=== PATIENT | male | born 1955 | race Caucasian/White ===

== ENCOUNTER 2020-07-28 10:34 | Inpatient (IN) ==
[2020-07-29] MEDS ORDERED: GLUCAGON 1 MG VIAL IM PRN (09:19)
[2020-07-29] MEDS ORDERED: DEXTROSE 50% 25 GM/50 ML VIAL IV PRN (09:19)
[2020-07-29] MEDS ORDERED: NITROGLYCERIN DRIP 50 MG/250 ML BOTTLE IV PRN (09:25)
[2020-07-29] MEDS ORDERED: HEPARIN DRIP 25,000 UNITS/500 ML PREMIX IV SCH (09:30)
[2020-07-29] MEDS ORDERED: SODIUM CHLORIDE 0.9% 1,000 ML IV SCH (12:00)
[2020-07-29] MEDS: AMIODARONE INJ 450 MG in DEXTROSE 5% 241 ML IV SCH (14:30)
[2020-07-29] MEDS ORDERED: AMIODARONE INJ 50 MG in DEXTROSE 5% 100 ML IV ONE (14:40)
[2020-07-29] MEDS ORDERED: CLORAZEPATE 3.75 MG TABLET PO PRN (14:47)
[2020-07-29] MEDS ORDERED: MORPHINE 4 MG/1 ML VIAL IV PRN (14:50)
[2020-07-29] MEDS ORDERED: NITROGLYCERIN SL 0.4 MG TABLET SL PRN (14:50)
[2020-07-29 15:39] LABS: ABG Base Excess -0.6 MMOL/L (-2.5-2.5); ABG HCO3 22.8 MMOL/L (20-26); ABG Oxygen Saturation 98.6 % (95-100); ABG PCO2 34.4 MM HG (35-48); ABG PO2 124.4 MM HG (80-95); ABG TCO2 23.9 MMOL/L (23-27); Allen Test Positive
[2020-07-29 15:41] LABS: Basophils % 0.2 % (0.0-0.8); Hematocrit 46.7 VOL% (42.0-52.0); Hemoglobin 15.6 GM/DL (14.0-18.0); Immature Granulocytes % 0.6 %; Immature Granulocytes Absolute 0.08 #; Lymphocytes # 1.2 10*3/uL (1.4-4.0); Lymphocytes % 8.2 % (21.2-54.2); Mean Corpuscular HGB Conc 33.4 GM/DL (32-36); Mean Corpuscular Volume 86.3 FL (87-102); Mean Platelet Volume 11.1 FL (9.6-12.0); Platelet Count 222 T/CUMM (130-400); Red Blood Count 5.41 MC/CUMM (3.8-5.5); White Blood Count 14.2 T/CUMM (4-12)
[2020-07-29 15:51] LABS: INR 1.1; PT Patient Result 11.8 SECS (9.8-11.9)
[2020-07-29 15:53] LABS: Partial Thromboplastin Time 50.3 SECS (23.9-33.8)
[2020-07-29 16:07] LABS: Albumin 3.5 G/DL (3.4-5.0); Bilirubin,Total 1.4 MG/DL (0.2-1.0); Osmolality,Calculated 258.2 MOS/KG (273-304); Potassium 4.1 MMOL/L (3.5-5.1); Total Protein 7.6 G/DL (6.4-8.2)
[2020-07-29 16:09] LABS: CKMB % 6.5 %
[2020-07-29 16:21] LABS: Troponin I 18.6 NG/ML (0.00-0.045)
[2020-07-29] MEDS: CHLORHEXIDINE 4% SOLN 118 ML BOTTLE TOP SCH ×2 (18:00→21:05)
[2020-07-29] MEDS: CHLORHEXIDINE 0.12% ORAL RINSE 60 ML BOTTLE SWISH/SPIT SCH (21:05)
[2020-07-29 21:27] LABS: INR 1.2; PT Patient Result 12.4 SECS (9.8-11.9); Partial Thromboplastin Time 39.5 SECS (23.9-33.8)
[2020-07-30] MEDS ORDERED: VANCOMYCIN 1,000 MG VIAL ONE (04:20)
[2020-07-30] MEDS ORDERED: VANCOMYCIN 500 MG VIAL ONE (04:20)
[2020-07-30] MEDS ORDERED: PAPAVERINE 60 MG/2 ML VIAL ONE (04:20)
[2020-07-30] MEDS ORDERED: CEFUROXIME INJ 1,500 MG in SODIUM CHLORIDE 0.9% 100 ML IV ONE (05:00)
[2020-07-30 05:06] LABS: Basophils % 0.3 % (0.0-0.8); Eosinophils % 0.2 % (0.00-10.9); Hematocrit 45.3 VOL% (42.0-52.0); Hemoglobin 15.2 GM/DL (14.0-18.0); Immature Granulocytes % 0.6 %; Immature Granulocytes Absolute 0.06 #; Lymphocytes # 1.1 10*3/uL (1.4-4.0); Lymphocytes % 10.5 % (21.2-54.2); Mean Corpuscular HGB Conc 33.6 GM/DL (32-36); Mean Corpuscular Volume 86.9 FL (87-102); Mean Platelet Volume 10.4 FL (9.6-12.0); Monocytes % 11.5 % (1.7-12.7); Neutrophils % 76.9 % (38.7-73.9); Platelet Count 214 T/CUMM (130-400); Red Blood Count 5.21 MC/CUMM (3.8-5.5); Red Cell Distribution Width 13.8 % (9.3-17.3); White Blood Count 10.7 T/CUMM (4-12)
[2020-07-30] MEDS: CHLORHEXIDINE 4% SOLN 118 ML BOTTLE TOP SCH ×2 (05:20→12:05)
[2020-07-30 05:36] LABS: Albumin 3.1 G/DL (3.4-5.0); Bilirubin,Total 1.4 MG/DL (0.2-1.0); Calcium 8.1 MG/DL (8.5-10.1); Osmolality,Calculated 263.7 MOS/KG (273-304); Potassium 3.8 MMOL/L (3.5-5.1); Total Protein 7.1 G/DL (6.4-8.2)
[2020-07-30 05:42] LABS: INR 4.9; PT Patient Result 48.1 SECS (9.8-11.9)
[2020-07-30] MEDS ORDERED: DIAZEPAM 5 MG TABLET PO ONE (05:42)
[2020-07-30] MEDS ORDERED: FAMOTIDINE 20 MG TABLET PO ONE (05:43)
[2020-07-30] MEDS: AMIODARONE INJ 450 MG in DEXTROSE 5% 241 ML IV SCH ×3 (05:44→23:40)
[2020-07-30 05:50] LABS: Partial Thromboplastin Time 20.5 SECS (23.9-33.8)
[2020-07-30] MEDS ORDERED: AMINOCAPROIC ACID 5,000 MG/20 ML VIAL ONE ×4 (05:53)
[2020-07-30] MEDS ORDERED: MIDAZOLAM 10 MG/2 ML VIAL ONE ×2 (05:59→08:41)
[2020-07-30] MEDS ORDERED: SUFentanil 250 MCG/5 ML AMP ONE (06:00)
[2020-07-30] MEDS ORDERED: LACTATED RINGERS 1,000 ML IV ONE (06:12)
[2020-07-30] MEDS ORDERED: ETOMIDATE 40 MG/20 ML VIAL IV ONE (06:12)
[2020-07-30] MEDS ORDERED: SODIUM CHLORIDE 0.9% 1,000 ML IV ONE (06:12)
[2020-07-30] MEDS ORDERED: LIDOCAINE 2% 5 ML VIAL ONE ×2 (06:12→10:29)
[2020-07-30] MEDS ORDERED: SODIUM CHLORIDE 0.9% 250 ML IV ONE (06:12)
[2020-07-30] MEDS ORDERED: CALCIUM CHLORIDE 1,000 MG/10 ML VIAL IV ONE (06:12)
[2020-07-30] MEDS ORDERED: VECURONIUM 10 MG VIAL IV ONE (06:12)
[2020-07-30] MEDS ORDERED: PHENYLEPHRINE DRIP 20 MG/250 ML PREMIX IV ONE (06:12)
[2020-07-30] MEDS ORDERED: PHENYLEPHRINE 1 MG/10 ML SYRINGE IV ONE (06:12)
[2020-07-30] MEDS ORDERED: HEPARIN/NACL 0.9% 2 UNITS/ML 500 ML IV ONE (06:13)
[2020-07-30 07:43] LABS: ABG Base Excess -1.7 MMOL/L (-2.5-2.5); ABG HCO3 23.1 MMOL/L (20-26); ABG PCO2 32.6 MM HG (35-48); ABG PH 7.432 (7.35-7.45); ABG TCO2 18.8 MMOL/L (23-27); Glucose Heart Surgery 117 MG/DL (74-106); Hematocrit Heart Surgery 41.4 PERCENT (42-52); Hemoglobin Heart Surgery 13.5 G/DL (14.0-18.0); Ionized Calcium Arterial 1.09 MMOL/L (1.21-1.46); PCO2 Patient Temp Arterial 32.6 MMHG; PH Patient Temp Arterial 7.432; Patient Temperature 37 CELCIUS; Potassium Heart/CVR 3.7 MMOL/L (3.5-5.1); Sodium Heart/CVR 133 MMOL/L (135-145)
[2020-07-30 07:49] LABS: Bilirubin,Urine Negative (Negative); Blood, Urine Small mg/dL (Negative); Glucose,Urine (UA) Negative (Negative); Ketones,Urine 5 mg/dL (Negative); Mucus,Urine Occasional /LPF (Occasional); Nitrite,Urine Negative (Negative); Protein,Urine Negative; RBC,Urine 3 /HPF (0-4); Urine Appearance CLEAR (Clear); Urine Color Yellow (Yellow); Urine Specific Gravity 1.016 (1.001-1.035); WBC,Urine <1 /HPF (0-6)
[2020-07-30 09:11] LABS: Hematocrit Heart Surgery 28.6 PERCENT (42-52); Hemoglobin Heart Surgery 9.2 G/DL (14.0-18.0); PCO2 Patient Temp Venous 37.8 MM HG; PH Patient Temp Venous 7.416; Potassium Heart/CVR 4.5 MMOL/L (3.5-5.1); VBG HCO3 24.1 MEQ/L (24-28); VBG Oxygen Saturation 75.2 %; VBG PCO2 39.7 MMHG (41-51); VBG PH 7.402; VBG PO2 40.7 MMHG (17-40); VBG Total CO2 22.8 MMOL/L
[2020-07-30 09:43] LABS: Hematocrit Heart Surgery 31.8 PERCENT (42-52); Hemoglobin Heart Surgery 10.3 G/DL (14.0-18.0); PH Patient Temp Venous 7.438; PO2 Patient Temp Venous 38.2 MM HG; Potassium Heart/CVR 4.2 MMOL/L (3.5-5.1); VBG Base Excess -0.2 MEQ/L (0-4); VBG Oxygen Saturation 79.3 %; VBG PCO2 38.5 MMHG (41-51); VBG PH 7.408; VBG PO2 43.9 MMHG (17-40); VBG Total CO2 22.1 MMOL/L
[2020-07-30] MEDS ORDERED: NITROPRUSSIDE 50 MG/2 ML VIAL ONE (10:12)
[2020-07-30] MEDS ORDERED: SODIUM BICARBONATE 50 MEQ/50 ML VIAL IV ONE ×2 (10:12→10:30)
[2020-07-30] MEDS ORDERED: CALCIUM CHLORIDE 1,000 MG/10 ML SYRINGE IV ONE (10:13)
[2020-07-30] MEDS ORDERED: POTASSIUM CHLORIDE RIDER 100 ML IV ONE (10:13)
[2020-07-30] MEDS ORDERED: PHENYLEPHRINE DRIP 40 MG/250 ML PREMIX IV ONE (10:13)
[2020-07-30] MEDS ORDERED: ALBUMIN 5% 12.5 GM/250 ML VIAL IV ONE (10:14)
[2020-07-30 10:15] LABS: Hematocrit Heart Surgery 31.7 PERCENT (42-52); Hemoglobin Heart Surgery 10.3 G/DL (14.0-18.0); PCO2 Patient Temp Venous 38.5 MM HG; PH Patient Temp Venous 7.402; PO2 Patient Temp Venous 38.7 MM HG; Potassium Heart/CVR 4.4 MMOL/L (3.5-5.1); VBG Base Excess -0.5 MEQ/L (0-4); VBG HCO3 23.5 MEQ/L (24-28); VBG Oxygen Saturation 72.2 %; VBG PCO2 38.5 MMHG (41-51); VBG PH 7.402; VBG PO2 38.7 MMHG (17-40); VBG Total CO2 21.9 MMOL/L
[2020-07-30] MEDS ORDERED: DEXTROSE 5% KCL 20 MEQ 20 MEQ/1,000 ML BAG IV ONE (10:29)
[2020-07-30] MEDS ORDERED: PROTAMINE SULFATE 250 MG/25 ML VIAL IV ONE (10:29)
[2020-07-30] MEDS ORDERED: methylPREDNISolone SOD SUC 1,000 MG/8 ML VIAL ONE (10:29)
[2020-07-30] MEDS ORDERED: ALBUMIN 25% 25 GM/100 ML VIAL IV ONE (10:29)
[2020-07-30] MEDS ORDERED: MANNITOL 100 GM/500 ML BAG IV ONE (10:29)
[2020-07-30] MEDS ORDERED: MAGNESIUM SULFATE 5 GM/10 ML VIAL IV ONE (10:29)
[2020-07-30] MEDS ORDERED: FUROSEMIDE 20 MG/2 ML VIAL ONE (10:30)
[2020-07-30] MEDS ORDERED: HEPARIN 10,000 UNIT/10 ML VIAL ONE (10:30)
[2020-07-30] MEDS ORDERED: PROTAMINE SULFATE 50 MG/5 ML VIAL IV ONE (10:30)
[2020-07-30 10:44] LABS: ABG Base Excess -1.6 MMOL/L (-2.5-2.5); ABG HCO3 23.1 MMOL/L (20-26); ABG PCO2 35.2 MM HG (35-48); ABG PH 7.412 (7.35-7.45); Glucose Heart Surgery 241 MG/DL (74-106); Hematocrit Heart Surgery 35.6 PERCENT (42-52); Hemoglobin Heart Surgery 11.6 G/DL (14.0-18.0); Ionized Calcium Arterial 1.21 MMOL/L (1.21-1.46); PCO2 Patient Temp Arterial 35.2 MMHG; PH Patient Temp Arterial 7.412; Patient Temperature 37 CELCIUS; Sodium Heart/CVR 128 MMOL/L (135-145)
[2020-07-30] MEDS ORDERED: SEVOFLURANE 1 UNIT/15 MINUTE INH ONE (10:55)
[2020-07-30] MEDS ORDERED: INSULIN REGULAR 100 UNIT/ML IV PRN (11:28)
[2020-07-30] MEDS ORDERED: CHLORHEXIDINE 4% SOLN 118 ML BOTTLE TOP PRN (11:28)
[2020-07-30] MEDS ORDERED: MORPHINE 10 MG/1 ML VIAL IV PRN (11:28)
[2020-07-30] MEDS ORDERED: INSULIN REGULAR 100 UNIT/ML IV ONE (11:28)
[2020-07-30] MEDS ORDERED: MIDAZOLAM 2 MG/2 ML VIAL IV PRN (11:28)
[2020-07-30] MEDS ORDERED: LACTATED RINGERS 250 ML IV PRN (11:28)
[2020-07-30] MEDS ORDERED: VECURONIUM 10 MG VIAL IV PRN ×2 (11:28)
[2020-07-30] MEDS ORDERED: DEXTROSE 50% 25 GM/50 ML VIAL IV PRN ×2 (11:28)
[2020-07-30] MEDS ORDERED: CALCIUM CHLORIDE 1,000 MG/10 ML SYRINGE IV PRN (11:28)
[2020-07-30] MEDS ORDERED: PHENYLEPHRINE DRIP 40 MG/250 ML PREMIX IV PRN (11:28)
[2020-07-30] MEDS ORDERED: NITROPRUSSIDE 100 MG in DEXTROSE 5% 250 ML IV PRN (11:28)
[2020-07-30] MEDS ORDERED: MAGNESIUM SULF RIDER 4 GM in PREMIX 1 EACH IV PRN (11:28)
[2020-07-30] MEDS ORDERED: MIDAZOLAM 10 MG/2 ML VIAL IV PRN (11:28)
[2020-07-30] MEDS ORDERED: ACETAMINOPHEN 650 MG SUPP RECTAL PRN (11:28)
[2020-07-30] MEDS ORDERED: MAGNESIUM SULF RIDER 2 GM in PREMIX 1 EACH IV PRN (11:28)
[2020-07-30] MEDS ORDERED: SODIUM CHLORIDE 0.45% 1,000 ML IV SCH ×2 (11:30)
[2020-07-30] MEDS ORDERED: INSULIN REGULAR DRIP 100 ML IV SCH (11:30)
[2020-07-30 11:47] LABS: ABG HCO3 23.6 MMOL/L (20-26); ABG PCO2 35.7 MM HG (35-48); ABG PH 7.417 (7.35-7.45); ABG TCO2 20.2 MMOL/L (23-27); Glucose Heart Surgery 205 MG/DL (74-106); Hematocrit Heart Surgery 37.8 PERCENT (42-52); Hemoglobin Heart Surgery 12.3 G/DL (14.0-18.0); Potassium Heart/CVR 3.7 MMOL/L (3.5-5.1)
[2020-07-30 11:52] LABS: Basophils % 0.2 % (0.0-0.8); Eosinophils % 0.1 % (0.00-10.9); Hematocrit 36.4 VOL% (42.0-52.0); Immature Granulocytes % 1.4 %; Immature Granulocytes Absolute 0.14 #; Lymphocytes # 0.3 10*3/uL (1.4-4.0); Lymphocytes % 3.2 % (21.2-54.2); Mean Corpuscular HGB Conc 33.2 GM/DL (32-36); Mean Corpuscular Volume 87.3 FL (87-102); Neutrophils % 91.1 % (38.7-73.9); Platelet Count 189 T/CUMM (130-400); Red Blood Count 4.17 MC/CUMM (3.8-5.5)
[2020-07-30 11:53] LABS: Hemoglobin 12.1 GM/DL (14.0-18.0)
[2020-07-30 12:02] LABS: INR 1.3; PT Patient Result 13.5 SECS (9.8-11.9); Partial Thromboplastin Time 30.6 SECS (23.9-33.8)
[2020-07-30] MEDS ORDERED: LACTATED RINGERS 1,000 ML IV PRN (12:16)
[2020-07-30 12:21] LABS: Troponin I 36.1 NG/ML (0.00-0.045)
[2020-07-30 12:29] LABS: Albumin 2.8 G/DL (3.4-5.0); Anisocytosis 1+; Band Neutrophils 20 % (0-10); Bilirubin,Total 1.9 MG/DL (0.2-1.0); Calcium 7.8 MG/DL (8.5-10.1); Lymphocytes 5 % (20-55); Metamyelocytes 1 %; Osmolality,Calculated 270.5 MOS/KG (273-304); Platelet Estimate Normal; Potassium 3.8 MMOL/L (3.5-5.1); Segmented Neutrophils 70 % (50-85); Total Cells Counted 100; Total Protein 5.6 G/DL (6.4-8.2)
[2020-07-30] MEDS: POTASSIUM CHLORIDE RIDER 20 MEQ in PREMIX 1 EACH IV PRN ×2 (12:47→21:13)
[2020-07-30] MEDS: ALBUMIN 5% 12.5 GM in PREMIX 1 EACH IV PRN ×2 (12:48→15:26)
[2020-07-30 13:48] LABS: ABG Base Excess -0.2 MMOL/L (-2.5-2.5); ABG HCO3 24.3 MMOL/L (20-26); ABG Oxygen Saturation 99.8 % (95-100); ABG PCO2 36.1 MM HG (35-48); ABG PH 7.427 (7.35-7.45); ABG TCO2 21.1 MMOL/L (23-27); Glucose Heart Surgery 157 MG/DL (74-106); Hematocrit Heart Surgery 35.7 PERCENT (42-52); Hemoglobin Heart Surgery 11.6 G/DL (14.0-18.0); Potassium Heart/CVR 4.3 MMOL/L (3.5-5.1)
[2020-07-30] MEDS: POTASSIUM CHLORIDE RIDER 10 MEQ in PREMIX 1 EACH IV PRN (14:19)
[2020-07-30] MEDS: CHLORHEXIDINE 0.12% ORAL RINSE 60 ML BOTTLE SWISH/SPIT SCH ×2 (14:21→21:15)
[2020-07-30 15:46] LABS: ABG Base Excess -2.5 MMOL/L (-2.5-2.5); ABG HCO3 22.4 MMOL/L (20-26); ABG Oxygen Saturation 99.2 % (95-100); ABG PCO2 36.3 MM HG (35-48); ABG PH 7.391 (7.35-7.45); ABG TCO2 19.6 MMOL/L (23-27); Glucose Heart Surgery 162 MG/DL (74-106); Hematocrit Heart Surgery 36.1 PERCENT (42-52); Hemoglobin Heart Surgery 11.7 G/DL (14.0-18.0); Potassium Heart/CVR 3.8 MMOL/L (3.5-5.1)
[2020-07-30 17:49] LABS: ABG Base Excess -0.8 MMOL/L (-2.5-2.5); ABG HCO3 23.8 MMOL/L (20-26); ABG Oxygen Saturation 99.4 % (95-100); ABG PCO2 33.4 MM HG (35-48); ABG PH 7.441 (7.35-7.45); ABG TCO2 20.2 MMOL/L (23-27); Glucose Heart Surgery 158 MG/DL (74-106); Hematocrit Heart Surgery 35.4 PERCENT (42-52); Hemoglobin Heart Surgery 11.5 G/DL (14.0-18.0)
[2020-07-30] MEDS ORDERED: FUROSEMIDE 40 MG/4 ML VIAL IV PRN (18:22)
[2020-07-30 20:35] LABS: ABG Base Excess -1.7 MMOL/L (-2.5-2.5); ABG Oxygen Saturation 98.1 % (95-100); ABG PCO2 39.6 MM HG (35-48); ABG PH 7.376 (7.35-7.45); ABG TCO2 20.7 MMOL/L (23-27); Glucose Heart Surgery 152 MG/DL (74-106); Hemoglobin Heart Surgery 11.7 G/DL (14.0-18.0); Potassium Heart/CVR 4.2 MMOL/L (3.5-5.1)
[2020-07-30] MEDS: CEFUROXIME INJ 1,500 MG in SYRINGE 1 EACH IV SCH (21:14)
[2020-07-30 21:22] LABS: CKMB % 3.8 %
[2020-07-30] MEDS: MORPHINE 4 MG/1 ML VIAL IV PRN ×2 (21:49→23:56)
[2020-07-31] MEDS: POTASSIUM CHLORIDE RIDER 10 MEQ in PREMIX 1 EACH IV PRN ×2 (01:12→06:57)
[2020-07-31] MEDS: ONDANSETRON 4 MG/2 ML VIAL IV PRN (04:41)
[2020-07-31] MEDS: AMIODARONE INJ 450 MG in DEXTROSE 5% 241 ML IV SCH (04:41)
[2020-07-31] MEDS: MORPHINE 4 MG/1 ML VIAL IV PRN (04:42)
[2020-07-31 04:57] LABS: ABG Base Excess -3.4 MMOL/L (-2.5-2.5); ABG HCO3 21.6 MMOL/L (20-26); ABG Oxygen Saturation 94.6 % (95-100); ABG PCO2 45.7 MM HG (35-48); ABG PH 7.312 (7.35-7.45); ABG PO2 77.9 MM HG (80-95); ABG TCO2 20.6 MMOL/L (23-27); Glucose Heart Surgery 121 MG/DL (74-106); Hematocrit Heart Surgery 37.8 PERCENT (42-52); Hemoglobin Heart Surgery 12.3 G/DL (14.0-18.0); Potassium Heart/CVR 4.8 MMOL/L (3.5-5.1)
[2020-07-31 05:01] LABS: Basophils % 0.1 % (0.0-0.8); Hematocrit 37.3 VOL% (42.0-52.0); Hemoglobin 12.1 GM/DL (14.0-18.0); Immature Granulocytes % 0.6 %; Immature Granulocytes Absolute 0.13 #; Lymphocytes % 4.8 % (21.2-54.2); Mean Corpuscular HGB Conc 32.4 GM/DL (32-36); Mean Corpuscular Volume 89.9 FL (87-102); Mean Platelet Volume 10.8 FL (9.6-12.0); Monocytes % 9.5 % (1.7-12.7); Platelet Count 231 T/CUMM (130-400); Red Blood Count 4.15 MC/CUMM (3.8-5.5); Red Cell Distribution Width 14.2 % (9.3-17.3); White Blood Count 21.2 T/CUMM (4-12)
[2020-07-31 05:15] LABS: CKMB % 3.1 %
[2020-07-31 05:37] LABS: Albumin 3.6 G/DL (3.4-5.0); Bilirubin,Direct 0.38 MG/DL (0.0-0.20); Bilirubin,Total 0.9 MG/DL (0.2-1.0); Calcium 8.3 MG/DL (8.5-10.1); Osmolality,Calculated 271.2 MOS/KG (273-304); Potassium 4.9 MMOL/L (3.5-5.1); Total Protein 6.1 G/DL (6.4-8.2)
[2020-07-31 06:25] LABS: Lymphocytes 11 % (20-55); Macrocytosis Slight; Segmented Neutrophils 87 % (50-85); Total Cells Counted 100
[2020-07-31 06:26] LABS: Platelet Estimate Adequate; Polychromasia Few
[2020-07-31] MEDS: CEFUROXIME INJ 1,500 MG in SYRINGE 1 EACH IV SCH ×2 (08:00→18:45)
[2020-07-31] MEDS: KETOROLAC 30 MG/1 ML VIAL IV PRN ×2 (08:52→15:54)
[2020-07-31] MEDS ORDERED: GLUCAGON 1 MG VIAL IM PRN (08:59)
[2020-07-31] MEDS ORDERED: DEXTROSE 50% 25 GM/50 ML VIAL IV PRN (08:59)
[2020-07-31] MEDS: AMIODARONE 200 MG TABLET PO SCH ×2 (10:00→20:38)
[2020-07-31] MEDS: CHLORHEXIDINE 0.12% ORAL RINSE 60 ML BOTTLE SWISH/SPIT SCH ×2 (10:00→20:41)
[2020-07-31] MEDS ORDERED: POTASSIUM CHLORIDE 20 MEQ TABLET PO PRN (10:35)
[2020-07-31] MEDS ORDERED: MAGNESIUM HYDROXIDE SUSP 30 ML UDCUP PO PRN (10:35)
[2020-07-31] MEDS ORDERED: ACETAMINOPHEN 325 MG TABLET PO PRN (10:35)
[2020-07-31] MEDS ORDERED: SODIUM CHLOR 0.45% KCL 20 MEQ 20 MEQ/1,000 ML BAG IV SCH (11:00)
[2020-07-31] MEDS: FERROUS SULFATE 325 MG TABLET PO SCH (11:06)
[2020-07-31] MEDS: DOCUSATE SODIUM 100 MG CAPSULE PO SCH (12:00)
[2020-07-31] MEDS: PANTOPRAZOLE 40 MG TABLET PO SCH (12:00)
[2020-07-31] MEDS: oxyCODONE/ACETAMINOPHEN 5-325 MG TABLET PO PRN ×2 (12:00→20:41)
[2020-07-31] MEDS: ASPIRIN EC 325 MG TABLET PO SCH (12:00)
[2020-07-31] MEDS: ALBUMIN 5% 12.5 GM in PREMIX 1 EACH IV PRN ×2 (13:15→13:35)
[2020-07-31 14:34] LABS: CKMB % 2.4 %
[2020-07-31 14:35] LABS: Troponin I 11.6 NG/ML (0.00-0.045)
[2020-07-31] MEDS ORDERED: FUROSEMIDE 40 MG/4 ML VIAL IV ONE (18:29)
[2020-08-01] MEDS: INSULIN REGULAR 100 UNIT/ML SUBCUT SCH ×4 (00:51→18:32)
[2020-08-01] MEDS: ZALEPLON 5 MG CAPSULE PO PRN ×3 (02:25→23:36)
[2020-08-01] MEDS: oxyCODONE/ACETAMINOPHEN 5-325 MG TABLET PO PRN ×2 (02:26→08:05)
[2020-08-01 05:09] LABS: Basophils % 0.1 % (0.0-0.8); Hemoglobin 9.9 GM/DL (14.0-18.0); Immature Granulocytes % 0.6 %; Immature Granulocytes Absolute 0.07 #; Lymphocytes % 8.9 % (21.2-54.2); Mean Corpuscular HGB Conc 31.9 GM/DL (32-36); Mean Corpuscular Volume 90.1 FL (87-102); Monocytes % 8.2 % (1.7-12.7); Neutrophils % 82.2 % (38.7-73.9); Platelet Count 170 T/CUMM (130-400); Red Blood Count 3.44 MC/CUMM (3.8-5.5); Red Cell Distribution Width 14.1 % (9.3-17.3); White Blood Count 11.2 T/CUMM (4-12)
[2020-08-01 05:29] LABS: Albumin 3.1 G/DL (3.4-5.0); Bilirubin,Direct 0.32 MG/DL (0.0-0.20); Bilirubin,Total 1.2 MG/DL (0.2-1.0); Calcium 8.2 MG/DL (8.5-10.1); Osmolality,Calculated 269.5 MOS/KG (273-304); Potassium 4.5 MMOL/L (3.5-5.1); Total Protein 5.3 G/DL (6.4-8.2)
[2020-08-01 05:31] LABS: Alanine Aminotransferase 83 U/L (16-61); Alkaline Phosphatase 62 U/L (45-117); Aspartate Amino Transferase 62 U/L (0-37); Bilirubin,Indirect 1.1 MG/DL (0.0-1.0); Total Protein 5.8 G/DL (6.4-8.2)
[2020-08-01] MEDS ORDERED: FUROSEMIDE 40 MG/4 ML VIAL IV ONE (06:00)
[2020-08-01] MEDS: KETOROLAC 30 MG/1 ML VIAL IV PRN ×2 (08:30→20:55)
[2020-08-01] MEDS: FERROUS SULFATE 325 MG TABLET PO SCH (09:00)
[2020-08-01] MEDS: AMIODARONE 200 MG TABLET PO SCH ×2 (09:00→20:54)
[2020-08-01] MEDS: ASPIRIN EC 325 MG TABLET PO SCH (09:01)
[2020-08-01] MEDS: PANTOPRAZOLE 40 MG TABLET PO SCH (09:01)
[2020-08-01] MEDS: DOCUSATE SODIUM 100 MG CAPSULE PO SCH (09:01)
[2020-08-01] MEDS: CHLORHEXIDINE 0.12% ORAL RINSE 60 ML BOTTLE SWISH/SPIT SCH ×2 (09:03→21:20)
[2020-08-01] MEDS: PHENOL 1.4% THROAT SPRAY 177 ML BOTTLE PO PRN ×2 (11:18→23:37)
[2020-08-01] MEDS: ALUMINUM/MAGNES/SIMETH MAX STR 30 ML UDCUP PO PRN (14:28)
[2020-08-01] MEDS: CITALOPRAM 20 MG TABLET PO SCH (20:54)
[2020-08-01] MEDS: ATORVASTATIN 40 MG TABLET PO SCH (20:54)
[2020-08-02] MEDS: INSULIN REGULAR 100 UNIT/ML SUBCUT SCH ×3 (01:08→11:55)
[2020-08-02] MEDS: ONDANSETRON 4 MG/2 ML VIAL IV PRN ×4 (03:30→20:55)
[2020-08-02] MEDS: ALUMINUM/MAGNES/SIMETH MAX STR 30 ML UDCUP PO PRN ×2 (04:20→12:12)
[2020-08-02 05:22] LABS: Basophils % 0.1 % (0.0-0.8); Eosinophils % 0.1 % (0.00-10.9); Hemoglobin 12.7 GM/DL (14.0-18.0); Immature Granulocytes % 0.8 %; Immature Granulocytes Absolute 0.09 #; Lymphocytes # 0.8 10*3/uL (1.4-4.0); Lymphocytes % 7.1 % (21.2-54.2); Mean Corpuscular HGB Conc 33.4 GM/DL (32-36); Mean Corpuscular Volume 87.4 FL (87-102); Monocytes % 9.7 % (1.7-12.7); Neutrophils % 82.2 % (38.7-73.9); Platelet Count 240 T/CUMM (130-400); Red Blood Count 4.35 MC/CUMM (3.8-5.5); Red Cell Distribution Width 13.9 % (9.3-17.3); White Blood Count 11.4 T/CUMM (4-12)
[2020-08-02 05:42] LABS: Alanine Aminotransferase 87 U/L (16-61); Albumin 3.2 G/DL (3.4-5.0); Alkaline Phosphatase 101 U/L (45-117); Aspartate Amino Transferase 53 U/L (0-37); Bilirubin,Direct 0.51 MG/DL (0.0-0.20); Bilirubin,Indirect 0.6 MG/DL (0.0-1.0); Bilirubin,Total 2.4 MG/DL (0.2-1.0); Calcium 8.5 MG/DL (8.5-10.1); Osmolality,Calculated 273.2 MOS/KG (273-304); Potassium 4.4 MMOL/L (3.5-5.1); Total Protein 6.6 G/DL (6.4-8.2)
[2020-08-02] MEDS: AMIODARONE 200 MG TABLET PO SCH ×2 (09:57→20:53)
[2020-08-02] MEDS: PANTOPRAZOLE 40 MG TABLET PO SCH (09:57)
[2020-08-02] MEDS: DOCUSATE SODIUM 100 MG CAPSULE PO SCH (09:57)
[2020-08-02] MEDS: ASPIRIN EC 325 MG TABLET PO SCH (09:57)
[2020-08-02] MEDS: CHLORHEXIDINE 0.12% ORAL RINSE 60 ML BOTTLE SWISH/SPIT SCH ×2 (09:58→21:23)
[2020-08-02] MEDS: FERROUS SULFATE 325 MG TABLET PO SCH (09:58)
[2020-08-02] MEDS: METOCLOPRAMIDE 10 MG/2 ML VIAL IV SCH ×4 (12:01→23:02)
[2020-08-02] MEDS: KETOROLAC 30 MG/1 ML VIAL IV PRN ×2 (13:08→21:24)
[2020-08-02] MEDS ORDERED: MAGNESIUM SULF RIDER 4 GM in PREMIX 1 EACH IV PRN (15:20)
[2020-08-02] MEDS ORDERED: DEXTROSE 50% 25 GM/50 ML VIAL IV PRN (15:20)
[2020-08-02] MEDS ORDERED: ALUMINUM/MAGNES/SIMETH MAX STR 30 ML UDCUP PO PRN (15:20)
[2020-08-02] MEDS ORDERED: MAGNESIUM HYDROXIDE SUSP 30 ML UDCUP PO PRN (15:20)
[2020-08-02] MEDS ORDERED: SODIUM CHLOR 0.45% KCL 20 MEQ 20 MEQ/1,000 ML BAG IV SCH (15:20)
[2020-08-02] MEDS ORDERED: POTASSIUM CHLORIDE 20 MEQ TABLET PO PRN (15:20)
[2020-08-02] MEDS ORDERED: ZALEPLON 5 MG CAPSULE PO PRN (15:20)
[2020-08-02] MEDS ORDERED: GLUCAGON 1 MG VIAL IM PRN (15:20)
[2020-08-02] MEDS ORDERED: METOPROLOL TARTRATE 25 MG TABLET PO ONE (15:20)
[2020-08-02] MEDS ORDERED: MAGNESIUM SULF RIDER 2 GM in PREMIX 1 EACH IV PRN (15:20)
[2020-08-02] MEDS ORDERED: ACETAMINOPHEN 325 MG TABLET PO PRN (15:20)
[2020-08-02] MEDS ORDERED: FUROSEMIDE 40 MG/4 ML VIAL IV ONE (16:58)
[2020-08-02] MEDS: METOPROLOL TARTRATE 25 MG TABLET PO SCH (20:53)
[2020-08-02] MEDS: CITALOPRAM 20 MG TABLET PO SCH (20:53)
[2020-08-02] MEDS: ATORVASTATIN 40 MG TABLET PO SCH (20:53)
[2020-08-02] MEDS ORDERED: AMIODARONE INJ 100 MG in DEXTROSE 5% 100 ML IV ONE (22:10)
[2020-08-02] MEDS ORDERED: PROMETHAZINE INJ 12.5 MG in SODIUM CHLORIDE 0.9% 50 ML IV PRN (22:10)
[2020-08-02] MEDS ORDERED: FUROSEMIDE 40 MG/4 ML VIAL IV PRN (22:20)
[2020-08-02] MEDS: AMIODARONE INJ 450 MG in DEXTROSE 5% 241 ML IV SCH (22:54)
[2020-08-03] MEDS: KETOROLAC 30 MG/1 ML VIAL IV PRN (03:22)
[2020-08-03 04:06] LABS: Basophils % 0.1 % (0.0-0.8); Hematocrit 39.9 VOL% (42.0-52.0); Hemoglobin 13.6 GM/DL (14.0-18.0); Immature Granulocytes % 0.4 %; Immature Granulocytes Absolute 0.03 #; Lymphocytes # 0.3 10*3/uL (1.4-4.0); Lymphocytes % 3.7 % (21.2-54.2); Mean Corpuscular HGB Conc 34.1 GM/DL (32-36); Mean Corpuscular Volume 86.2 FL (87-102); Mean Platelet Volume 10.7 FL (9.6-12.0); Monocytes % 10.3 % (1.7-12.7); Neutrophils % 85.5 % (38.7-73.9); Platelet Count 270 T/CUMM (130-400); Red Blood Count 4.63 MC/CUMM (3.8-5.5); Red Cell Distribution Width 13.8 % (9.3-17.3); White Blood Count 8.4 T/CUMM (4-12)
[2020-08-03 04:28] LABS: Alanine Aminotransferase 335 U/L (16-61); Albumin 2.9 G/DL (3.4-5.0); Alkaline Phosphatase 237 U/L (45-117); Aspartate Amino Transferase 252 U/L (0-37); Bilirubin,Indirect 0.7 MG/DL (0.0-1.0); Blood Urea Nitrogen 43 MG/DL (7-18); Calcium 8.4 MG/DL (8.5-10.1); Carbon Dioxide 27 MMOL/L (21-32); Estimated Glom Filtration Rate 54 ML/MIN; Glucose 124 MG/DL (74-106); Osmolality,Calculated 275.5 MOS/KG (273-304); Potassium 4.3 MMOL/L (3.5-5.1); Sodium 132 MMOL/L (136-145); Total Protein 6.5 G/DL (6.4-8.2)
[2020-08-03] MEDS ORDERED: ACETAMINOPHEN 650 MG SUPP RECTAL PRN (05:02)
[2020-08-03] MEDS ORDERED: ALBUMIN 5% 12.5 GM in PREMIX 1 EACH IV ONE ×2 (05:08→06:02)
[2020-08-03 05:14] LABS: Hypochromasia Slight; Lymphocytes 7 % (20-55); Platelet Estimate Normal; Segmented Neutrophils 87 % (50-85); Total Cells Counted 100
[2020-08-03] MEDS: PIPERACILLIN/TAZOBACTAM 3,375 MG in SODIUM CHLORIDE 0.9% 100 ML IV SCH ×3 (05:40→21:30)
[2020-08-03] MEDS ORDERED: FUROSEMIDE 40 MG/4 ML VIAL IV ONE (06:00)
[2020-08-03] MEDS: METOCLOPRAMIDE 10 MG/2 ML VIAL IV SCH (06:10)
[2020-08-03] MEDS ORDERED: PHENYLEPHRINE DRIP 40 MG/250 ML PREMIX IV ONE (06:36)
[2020-08-03] MEDS: SODIUM CHLORIDE 0.9% 1,000 ML IV SCH ×5 (06:37→21:55)
[2020-08-03] MEDS ORDERED: PHENYLEPHRINE DRIP 40 MG/250 ML PREMIX IV PRN (06:41)
[2020-08-03 07:43] LABS: ABG Base Excess 3.9 MMOL/L (-2.5-2.5); ABG HCO3 27.9 MMOL/L (20-26); ABG Oxygen Saturation 97.2 % (95-100); ABG PCO2 34.1 MM HG (35-48); ABG PH 7.503 (7.35-7.45); ABG PO2 87.1 MM HG (80-95); ABG TCO2 23.7 MMOL/L (23-27)
[2020-08-03] MEDS: METOPROLOL TARTRATE 25 MG TABLET PO SCH ×2 (09:47→21:30)
[2020-08-03] MEDS: DOCUSATE SODIUM 100 MG/10 ML UDCUP PO SCH (10:19)
[2020-08-03] MEDS: PANTOPRAZOLE 40 MG VIAL IV SCH (10:19)
[2020-08-03] MEDS: ASPIRIN EC 325 MG TABLET PO SCH (10:19)
[2020-08-03] MEDS: DOCUSATE SODIUM 100 MG CAPSULE PO SCH (10:43)
[2020-08-03] MEDS: PANTOPRAZOLE 40 MG TABLET PO SCH (10:43)
[2020-08-03] MEDS: CHLORHEXIDINE 0.12% ORAL RINSE 60 ML BOTTLE SWISH/SPIT SCH ×2 (13:03→21:29)
[2020-08-03] MEDS: POLYETHYLENE GLYCOL POWDER 17 GM PACK PO SCH (13:07)
[2020-08-03] MEDS: AMIODARONE INJ 450 MG in DEXTROSE 5% 241 ML IV SCH (15:11)
[2020-08-03] MEDS: CITALOPRAM 20 MG TABLET PO SCH (21:29)
[2020-08-04 04:27] LABS: Basophils % 0.1 % (0.0-0.8); Eosinophils # 0.1 10*3/uL (0.0-0.87); Eosinophils % 0.6 % (0.00-10.9); Hematocrit 30.5 VOL% (42.0-52.0); Immature Granulocytes % 0.6 %; Immature Granulocytes Absolute 0.05 #; Lymphocytes % 12.1 % (21.2-54.2); Mean Corpuscular HGB Conc 32.8 GM/DL (32-36); Mean Corpuscular Volume 88.7 FL (87-102); Mean Platelet Volume 10.2 FL (9.6-12.0); Monocytes % 10.9 % (1.7-12.7); Neutrophils % 75.7 % (38.7-73.9); Platelet Count 242 T/CUMM (130-400); Red Blood Count 3.44 MC/CUMM (3.8-5.5); Red Cell Distribution Width 13.8 % (9.3-17.3)
[2020-08-04 04:55] LABS: Albumin 2.6 G/DL (3.4-5.0); Bilirubin,Direct 0.61 MG/DL (0.0-0.20); Bilirubin,Indirect 1.3 MG/DL (0.0-1.0); Bilirubin,Total 1.9 MG/DL (0.2-1.0)
[2020-08-04 04:58] LABS: Alanine Aminotransferase 161 U/L (16-61); Albumin 2.5 G/DL (3.4-5.0); Alkaline Phosphatase 126 U/L (45-117); Aspartate Amino Transferase 59 U/L (0-37); Bilirubin,Indirect 1.5 MG/DL (0.0-1.0); Blood Urea Nitrogen 33 MG/DL (7-18); Calcium 7.8 MG/DL (8.5-10.1); Carbon Dioxide 25 MMOL/L (21-32); Estimated Glom Filtration Rate 101 ML/MIN; Glucose 68 MG/DL (74-106); Osmolality,Calculated 281.5 MOS/KG (273-304); Sodium 139 MMOL/L (136-145); Total Protein 5.6 G/DL (6.4-8.2)
[2020-08-04] MEDS: PIPERACILLIN/TAZOBACTAM 3,375 MG in SODIUM CHLORIDE 0.9% 100 ML IV SCH ×3 (06:15→21:09)
[2020-08-04] MEDS: SODIUM CHLORIDE 0.9% 1,000 ML IV SCH ×4 (06:27→23:47)
[2020-08-04] MEDS: AMIODARONE INJ 450 MG in DEXTROSE 5% 241 ML IV SCH ×2 (07:06→08:35)
[2020-08-04] MEDS: ASPIRIN EC 325 MG TABLET PO SCH (09:00)
[2020-08-04] MEDS: PANTOPRAZOLE 40 MG VIAL IV SCH (09:00)
[2020-08-04] MEDS: DOCUSATE SODIUM 100 MG/10 ML UDCUP PO SCH (10:25)
[2020-08-04] MEDS: METOPROLOL TARTRATE 25 MG TABLET PO SCH ×2 (10:25→20:01)
[2020-08-04] MEDS: POLYETHYLENE GLYCOL POWDER 17 GM PACK PO SCH (10:26)
[2020-08-04] MEDS: CHLORHEXIDINE 0.12% ORAL RINSE 60 ML BOTTLE SWISH/SPIT SCH ×2 (10:26→20:02)
[2020-08-04] MEDS ORDERED: VANCOMYCIN INJ 1,000 MG in SODIUM CHLORIDE 0.9% 250 ML IV ONE (14:47)
[2020-08-04] MEDS: CITALOPRAM 20 MG TABLET PO SCH (20:02)
[2020-08-05] MEDS: AMIODARONE INJ 450 MG in DEXTROSE 5% 241 ML IV SCH (02:49)
[2020-08-05 04:57] LABS: Basophils % 0.1 % (0.0-0.8); Eosinophils # 0.1 10*3/uL (0.0-0.87); Hematocrit 31.2 VOL% (42.0-52.0); Immature Granulocytes % 1.4 %; Immature Granulocytes Absolute 0.11 #; Lymphocytes # 0.9 10*3/uL (1.4-4.0); Lymphocytes % 11.9 % (21.2-54.2); Mean Corpuscular HGB Conc 32.1 GM/DL (32-36); Mean Corpuscular Volume 89.1 FL (87-102); Mean Platelet Volume 10.5 FL (9.6-12.0); Monocytes % 10.3 % (1.7-12.7); Neutrophils % 75.3 % (38.7-73.9); Platelet Count 230 T/CUMM (130-400); Red Cell Distribution Width 13.5 % (9.3-17.3); White Blood Count 7.8 T/CUMM (4-12)
[2020-08-05] MEDS: PIPERACILLIN/TAZOBACTAM 3,375 MG in SODIUM CHLORIDE 0.9% 100 ML IV SCH ×3 (05:22→20:32)
[2020-08-05 05:29] LABS: Albumin 2.4 G/DL (3.4-5.0); Bilirubin,Total 0.7 MG/DL (0.2-1.0); Osmolality,Calculated 275.7 MOS/KG (273-304); Potassium 3.9 MMOL/L (3.5-5.1); Total Protein 5.4 G/DL (6.4-8.2)
[2020-08-05 05:33] LABS: Bilirubin,Indirect 1.4 MG/DL (0.0-1.0)
[2020-08-05] MEDS ORDERED: KETOROLAC 30 MG/1 ML VIAL IV ONE (09:55)
[2020-08-05] MEDS: PANTOPRAZOLE 40 MG TABLET PO SCH (10:00)
[2020-08-05] MEDS: DOCUSATE SODIUM 100 MG/10 ML UDCUP PO SCH (10:00)
[2020-08-05] MEDS: ASPIRIN EC 325 MG TABLET PO SCH (10:00)
[2020-08-05] MEDS: POLYETHYLENE GLYCOL POWDER 17 GM PACK PO SCH (10:00)
[2020-08-05] MEDS: METOPROLOL TARTRATE 25 MG TABLET PO SCH ×2 (10:00→20:19)
[2020-08-05] MEDS: SODIUM CHLORIDE 0.9% 1,000 ML IV SCH (10:25)
[2020-08-05] MEDS: PANTOPRAZOLE 40 MG VIAL IV SCH (10:45)
[2020-08-05] MEDS ORDERED: ACETAMINOPHEN 325 MG TABLET PO PRN (14:14)
[2020-08-05] MEDS ORDERED: GLUCAGON 1 MG VIAL IM PRN (14:14)
[2020-08-05] MEDS ORDERED: DEXTROSE 50% 25 GM/50 ML VIAL IV PRN (14:14)
[2020-08-05] MEDS ORDERED: MAGNESIUM SULF RIDER 4 GM in PREMIX 1 EACH IV PRN (14:14)
[2020-08-05] MEDS ORDERED: ONDANSETRON 4 MG/2 ML VIAL IV PRN (14:14)
[2020-08-05] MEDS ORDERED: KETOROLAC 30 MG/1 ML VIAL IV PRN (14:14)
[2020-08-05] MEDS ORDERED: MAGNESIUM SULF RIDER 2 GM in PREMIX 1 EACH IV PRN (14:14)
[2020-08-05] MEDS ORDERED: ZALEPLON 5 MG CAPSULE PO PRN (14:14)
[2020-08-05] MEDS: CITALOPRAM 20 MG TABLET PO SCH (20:19)
[2020-08-05] MEDS: CHLORHEXIDINE 0.12% ORAL RINSE 60 ML BOTTLE SWISH/SPIT SCH (20:20)
[2020-08-05] MEDS ORDERED: AMIODARONE 200 MG TABLET PO ONE (21:00)
[2020-08-06 05:18] LABS: Basophils % 0.3 % (0.0-0.8); Eosinophils # 0.1 10*3/uL (0.0-0.87); Eosinophils % 1.4 % (0.00-10.9); Hematocrit 32.2 VOL% (42.0-52.0); Hemoglobin 10.6 GM/DL (14.0-18.0); Immature Granulocytes % 3.8 %; Immature Granulocytes Absolute 0.27 #; Lymphocytes % 13.9 % (21.2-54.2); Mean Corpuscular HGB Conc 32.9 GM/DL (32-36); Mean Platelet Volume 10.3 FL (9.6-12.0); Monocytes % 8.3 % (1.7-12.7); Neutrophils % 72.3 % (38.7-73.9); Platelet Count 274 T/CUMM (130-400); Red Blood Count 3.66 MC/CUMM (3.8-5.5); Red Cell Distribution Width 13.2 % (9.3-17.3); White Blood Count 7.2 T/CUMM (4-12)
[2020-08-06 05:42] LABS: Hypochromasia Slight; Microcytosis 1+
[2020-08-06 05:43] LABS: Platelet Estimate Normal
[2020-08-06 05:45] LABS: Alanine Aminotransferase 91 U/L (16-61); Albumin 2.2 G/DL (3.4-5.0); Alkaline Phosphatase 113 U/L (45-117); Aspartate Amino Transferase 37 U/L (0-37); Blood Urea Nitrogen 19 MG/DL (7-18); Calcium 7.9 MG/DL (8.5-10.1); Carbon Dioxide 19 MMOL/L (21-32); Estimated Glom Filtration Rate 111 ML/MIN; Glucose 80 MG/DL (74-106); Osmolality,Calculated 270.1 MOS/KG (273-304); Potassium 3.8 MMOL/L (3.5-5.1); Sodium 135 MMOL/L (136-145); Total Protein 5.4 G/DL (6.4-8.2)
[2020-08-06] MEDS: PIPERACILLIN/TAZOBACTAM 3,375 MG in SODIUM CHLORIDE 0.9% 100 ML IV SCH ×3 (05:50→22:15)
[2020-08-06] MEDS: AMIODARONE INJ 450 MG in DEXTROSE 5% 241 ML IV SCH (07:36)
[2020-08-06] MEDS: CHLORHEXIDINE 0.12% ORAL RINSE 60 ML BOTTLE SWISH/SPIT SCH ×3 (07:37→20:23)
[2020-08-06] MEDS ORDERED: PANTOPRAZOLE 40 MG TABLET PO SCH (09:00)
[2020-08-06] MEDS: DOCUSATE SODIUM 100 MG/10 ML UDCUP PO SCH (09:13)
[2020-08-06] MEDS: POTASSIUM CHLORIDE 20 MEQ TABLET PO PRN (09:20)
[2020-08-06] MEDS: PANTOPRAZOLE 40 MG TABLET PO SCH (09:21)
[2020-08-06] MEDS: DOCUSATE SODIUM 100 MG CAPSULE PO SCH (09:21)
[2020-08-06] MEDS: ASPIRIN EC 325 MG TABLET PO SCH (09:21)
[2020-08-06] MEDS: AMIODARONE 200 MG TABLET PO SCH ×2 (09:21→20:19)
[2020-08-06] MEDS: METOPROLOL TARTRATE 25 MG TABLET PO SCH ×2 (09:21→20:19)
[2020-08-06] MEDS: CITALOPRAM 20 MG TABLET PO SCH (20:19)
[2020-08-07 05:09] LABS: Basophils % 0.2 % (0.0-0.8); Eosinophils # 0.1 10*3/uL (0.0-0.87); Eosinophils % 1.3 % (0.00-10.9); Hematocrit 30.9 VOL% (42.0-52.0); Hemoglobin 10.4 GM/DL (14.0-18.0); Immature Granulocytes % 4.5 %; Lymphocytes # 1.2 10*3/uL (1.4-4.0); Lymphocytes % 13.5 % (21.2-54.2); Mean Corpuscular HGB Conc 33.7 GM/DL (32-36); Mean Corpuscular Volume 86.1 FL (87-102); Monocytes % 9.5 % (1.7-12.7); Platelet Count 311 T/CUMM (130-400); Red Blood Count 3.59 MC/CUMM (3.8-5.5); Red Cell Distribution Width 13.6 % (9.3-17.3)
[2020-08-07] MEDS: PIPERACILLIN/TAZOBACTAM 3,375 MG in SODIUM CHLORIDE 0.9% 100 ML IV SCH ×3 (05:28→21:13)
[2020-08-07 05:32] LABS: Alanine Aminotransferase 73 U/L (16-61); Albumin 2.2 G/DL (3.4-5.0); Albumin 2.3 G/DL (3.4-5.0); Alkaline Phosphatase 91 U/L (45-117); Aspartate Amino Transferase 26 U/L (0-37); Bilirubin,Indirect 1.5 MG/DL (0.0-1.0); Bilirubin,Total 0.6 MG/DL (0.2-1.0); Calcium 7.5 MG/DL (8.5-10.1); Osmolality,Calculated 269.1 MOS/KG (273-304); Potassium 3.8 MMOL/L (3.5-5.1); Total Protein 4.7 G/DL (6.4-8.2); Total Protein 5.2 G/DL (6.4-8.2)
[2020-08-07 05:34] LABS: Troponin I 0.714 NG/ML (0.00-0.045)
[2020-08-07] MEDS: CHLORHEXIDINE 0.12% ORAL RINSE 60 ML BOTTLE SWISH/SPIT SCH ×2 (08:44→20:06)
[2020-08-07] MEDS: AMIODARONE 200 MG TABLET PO SCH ×2 (08:44→20:06)
[2020-08-07] MEDS: ASPIRIN EC 325 MG TABLET PO SCH (08:44)
[2020-08-07] MEDS: DOCUSATE SODIUM 100 MG CAPSULE PO SCH (08:44)
[2020-08-07] MEDS: PANTOPRAZOLE 40 MG TABLET PO SCH (08:44)
[2020-08-07] MEDS: METOPROLOL TARTRATE 25 MG TABLET PO SCH ×2 (08:44→20:06)
[2020-08-07] MEDS: CITALOPRAM 20 MG TABLET PO SCH (20:06)
[2020-08-07] MEDS: POTASSIUM CHLORIDE 20 MEQ TABLET PO PRN (21:09)
[2020-08-08] MEDS: POTASSIUM CHLORIDE 20 MEQ TABLET PO PRN (00:07)
[2020-08-08] MEDS: PIPERACILLIN/TAZOBACTAM 3,375 MG in SODIUM CHLORIDE 0.9% 100 ML IV SCH ×3 (05:33→22:31)
[2020-08-08 05:51] LABS: Basophils # 0.1 10*3/uL (0.0-0.2); Basophils % 0.4 % (0.0-0.8); Eosinophils # 0.1 10*3/uL (0.0-0.87); Eosinophils % 0.9 % (0.00-10.9); Hematocrit 32.1 VOL% (42.0-52.0); Hemoglobin 10.8 GM/DL (14.0-18.0); Immature Granulocytes % 3.6 %; Lymphocytes # 1.2 10*3/uL (1.4-4.0); Lymphocytes % 11.1 % (21.2-54.2); Mean Corpuscular HGB Conc 33.6 GM/DL (32-36); Mean Corpuscular Volume 85.8 FL (87-102); Mean Platelet Volume 9.9 FL (9.6-12.0); Monocytes % 8.3 % (1.7-12.7); Neutrophils % 75.7 % (38.7-73.9); Platelet Count 335 T/CUMM (130-400); Red Blood Count 3.74 MC/CUMM (3.8-5.5); Red Cell Distribution Width 13.5 % (9.3-17.3); White Blood Count 11.2 T/CUMM (4-12)
[2020-08-08 06:13] LABS: Hypochromasia 1+; Microcytosis 1+; Platelet Estimate Adequate
[2020-08-08 06:14] LABS: Albumin 2.3 G/DL (3.4-5.0); Bilirubin,Total 0.8 MG/DL (0.2-1.0); Calcium 7.8 MG/DL (8.5-10.1); Osmolality,Calculated 265.2 MOS/KG (273-304); Potassium 4.1 MMOL/L (3.5-5.1); Total Protein 5.5 G/DL (6.4-8.2)
[2020-08-08] MEDS: DOCUSATE SODIUM 100 MG CAPSULE PO SCH (09:01)
[2020-08-08] MEDS: ASPIRIN EC 325 MG TABLET PO SCH (09:01)
[2020-08-08] MEDS: AMIODARONE 200 MG TABLET PO SCH ×2 (09:01→20:28)
[2020-08-08] MEDS: METOPROLOL TARTRATE 25 MG TABLET PO SCH ×2 (09:01→20:28)
[2020-08-08] MEDS: PANTOPRAZOLE 40 MG TABLET PO SCH (09:01)
[2020-08-08] MEDS: CHLORHEXIDINE 0.12% ORAL RINSE 60 ML BOTTLE SWISH/SPIT SCH ×2 (09:02→20:28)
[2020-08-08] MEDS: CITALOPRAM 20 MG TABLET PO SCH (20:28)
[2020-08-09] MEDS: PIPERACILLIN/TAZOBACTAM 3,375 MG in SODIUM CHLORIDE 0.9% 100 ML IV SCH ×2 (05:36→16:05)
[2020-08-09 05:50] LABS: Basophils % 0.3 % (0.0-0.8); Eosinophils # 0.1 10*3/uL (0.0-0.87); Hematocrit 33.4 VOL% (42.0-52.0); Hemoglobin 11.4 GM/DL (14.0-18.0); Immature Granulocytes % 3.9 %; Immature Granulocytes Absolute 0.47 #; Lymphocytes # 1.3 10*3/uL (1.4-4.0); Lymphocytes % 11.1 % (21.2-54.2); Mean Corpuscular HGB Conc 34.1 GM/DL (32-36); Mean Corpuscular Volume 86.8 FL (87-102); Monocytes % 6.8 % (1.7-12.7); Neutrophils % 76.9 % (38.7-73.9); Platelet Count 363 T/CUMM (130-400); Red Blood Count 3.85 MC/CUMM (3.8-5.5); Red Cell Distribution Width 13.9 % (9.3-17.3); White Blood Count 11.9 T/CUMM (4-12)
[2020-08-09 06:13] LABS: Alanine Aminotransferase 61 U/L (16-61); Albumin 2.3 G/DL (3.4-5.0); Alkaline Phosphatase 85 U/L (45-117); Aspartate Amino Transferase 26 U/L (0-37); Bilirubin,Indirect 0.6 MG/DL (0.0-1.0); Blood Urea Nitrogen 8 MG/DL (7-18); Calcium 7.9 MG/DL (8.5-10.1); Carbon Dioxide 18 MMOL/L (21-32); Estimated Glom Filtration Rate 113 ML/MIN; Glucose 75 MG/DL (74-106); Osmolality,Calculated 260.5 MOS/KG (273-304); Potassium 3.8 MMOL/L (3.5-5.1); Sodium 132 MMOL/L (136-145); Total Protein 5.6 G/DL (6.4-8.2); Troponin I 0.248 NG/ML (0.00-0.045)
[2020-08-09] MEDS: PANTOPRAZOLE 40 MG TABLET PO SCH (09:08)
[2020-08-09] MEDS: CHLORHEXIDINE 0.12% ORAL RINSE 60 ML BOTTLE SWISH/SPIT SCH ×2 (09:08→22:02)
[2020-08-09] MEDS: DOCUSATE SODIUM 100 MG CAPSULE PO SCH (09:08)
[2020-08-09] MEDS: METOPROLOL TARTRATE 25 MG TABLET PO SCH ×2 (09:08→22:00)
[2020-08-09] MEDS: AMIODARONE 200 MG TABLET PO SCH ×2 (09:08→22:01)
[2020-08-09] MEDS: ASPIRIN EC 325 MG TABLET PO SCH (09:08)
[2020-08-09] MEDS: CITALOPRAM 20 MG TABLET PO SCH (22:01)
[2020-08-10] MEDS: PIPERACILLIN/TAZOBACTAM 3,375 MG in SODIUM CHLORIDE 0.9% 100 ML IV SCH ×4 (01:16→23:45)
[2020-08-10 04:17] LABS: Basophils # 0.1 10*3/uL (0.0-0.2); Basophils % 0.5 % (0.0-0.8); Eosinophils # 0.1 10*3/uL (0.0-0.87); Eosinophils % 1.2 % (0.00-10.9); Hematocrit 33.9 VOL% (42.0-52.0); Hemoglobin 11.5 GM/DL (14.0-18.0); Immature Granulocytes % 4.3 %; Immature Granulocytes Absolute 0.44 #; Lymphocytes # 1.3 10*3/uL (1.4-4.0); Lymphocytes % 12.9 % (21.2-54.2); Mean Corpuscular HGB Conc 33.9 GM/DL (32-36); Mean Corpuscular Volume 86.3 FL (87-102); Mean Platelet Volume 9.9 FL (9.6-12.0); Monocytes % 7.5 % (1.7-12.7); Neutrophils % 73.6 % (38.7-73.9); Platelet Count 383 T/CUMM (130-400); Red Blood Count 3.93 MC/CUMM (3.8-5.5); Red Cell Distribution Width 13.9 % (9.3-17.3); White Blood Count 10.3 T/CUMM (4-12)
[2020-08-10 04:35] LABS: Alanine Aminotransferase 61 U/L (16-61); Albumin 2.5 G/DL (3.4-5.0); Alkaline Phosphatase 83 U/L (45-117); Aspartate Amino Transferase 27 U/L (0-37); Bilirubin,Indirect 0.5 MG/DL (0.0-1.0); Blood Urea Nitrogen 9 MG/DL (7-18); Carbon Dioxide 20 MMOL/L (21-32); Estimated Glom Filtration Rate 113 ML/MIN; Glucose 71 MG/DL (74-106); Osmolality,Calculated 258.7 MOS/KG (273-304); Potassium 3.7 MMOL/L (3.5-5.1); Sodium 131 MMOL/L (136-145); Total Protein 5.8 G/DL (6.4-8.2)
[2020-08-10] MEDS: AMIODARONE 200 MG TABLET PO SCH ×2 (09:12→21:02)
[2020-08-10] MEDS: DOCUSATE SODIUM 100 MG CAPSULE PO SCH (09:12)
[2020-08-10] MEDS: METOPROLOL TARTRATE 25 MG TABLET PO SCH (09:12)
[2020-08-10] MEDS: PANTOPRAZOLE 40 MG TABLET PO SCH (09:12)
[2020-08-10] MEDS: ASPIRIN EC 325 MG TABLET PO SCH (09:12)
[2020-08-10] MEDS: CHLORHEXIDINE 0.12% ORAL RINSE 60 ML BOTTLE SWISH/SPIT SCH ×2 (09:13→21:02)
[2020-08-10] MEDS ORDERED: APIXABAN 5 MG TABLET PO ONE (10:30)
[2020-08-10] MEDS: APIXABAN 5 MG TABLET PO SCH (21:01)
[2020-08-10] MEDS: CITALOPRAM 20 MG TABLET PO SCH (21:01)
[2020-08-10] MEDS: METOPROLOL TARTRATE 50 MG TABLET PO SCH (21:02)
[2020-08-11 05:20] LABS: Calcium 8.4 MG/DL (8.5-10.1); Osmolality,Calculated 262.4 MOS/KG (273-304)
[2020-08-11] MEDS: METOPROLOL TARTRATE 50 MG TABLET PO SCH (08:18)
[2020-08-11] MEDS: DOCUSATE SODIUM 100 MG CAPSULE PO SCH (08:18)
[2020-08-11] MEDS: PANTOPRAZOLE 40 MG TABLET PO SCH (08:18)
[2020-08-11] MEDS: ASPIRIN EC 325 MG TABLET PO SCH (08:18)
[2020-08-11] MEDS: AMIODARONE 200 MG TABLET PO SCH (08:19)
[2020-08-11] MEDS: APIXABAN 5 MG TABLET PO SCH (08:23)
[2020-08-11] MEDS: CHLORHEXIDINE 0.12% ORAL RINSE 60 ML BOTTLE SWISH/SPIT SCH (08:23)
[2020-08-11] MEDS: PIPERACILLIN/TAZOBACTAM 3,375 MG in SODIUM CHLORIDE 0.9% 100 ML IV SCH (10:04)
[2020-08-11 11:23] VITALS: BP 130/59
== END 2020-08-11 11:38 | disposition home health service (06) | DRG 235 ==
LOC: N.ICU 07-29 13:59 → N.CVR 07-30 11:07 → N.ICU 07-31 13:29 → N.TELES 08-05 17:33